=== PATIENT | male | born 1995 | race Caucasian/White ===

== ENCOUNTER 2021-06-28 11:21 | Emergency (ER) | payer OTHER ==
[~2021-06-28] VITALS: Ht 185.4 cm; Wt 78.9 kg
[2021-06-28] MEDS ORDERED: DOXYCYCLINE HYCLATE 100 MG TABLET PO ONE (11:45)
[2021-06-28] MEDS ORDERED: CEFTRIAXONE 1 G VIAL IM ONE (11:45)
[2021-06-28] MEDS ORDERED: DOXY-326 PO (11:50)
[2021-06-28] MEDS ORDERED: CEFTRIAXONE 1 G VIAL ONE (12:01)
--- NOTE | 2021-06-28 12:01 | NUR ---
PT WAS EVALUATED BY DR OLIVO. PT WAS D/C'd TO HOME. D/C INSTRUCTIONS GIVEN TO THE PT BY DR OLIVO.
[2021-06-28 12:02] VITALS: BP 132/76
[2021-06-28] MEDS ORDERED: DOXYCYCLINE HYCLATE 100 MG TABLET ONE (12:02)
[2021-06-30 03:06] LABS: *TRIC.VAG. NAA Negative (Negative)
[2021-06-30 21:06] LABS: *GC NAA Negative (Negative)
== END 2021-06-28 12:03 | disposition home or self-care (01) ==
LOC: ER 11:21
DX: Z20.2 Contact with and (suspected) exposure to infections with a predominantly sexual mode of transmission (principal)
CPT/HCPCS: 87491; 96372; 99283; J0696; A4663